=== PATIENT | female | born 1955 | race Caucasian/White ===

== ENCOUNTER 2017-03-27 10:18 | Outpatient (CLI) | payer MEDICAID | END 2017-03-27 10:19 | disposition home or self-care (01) | LOC: SC 10:18 | PROVIDERS: ATTEND Internal Medicine Pulmonary Disease | DX: G47.30 Sleep apnea, unspecified (principal); R53.83 Other fatigue; R06.83 Snoring | CPT/HCPCS: 99203; 99212 ==

== ENCOUNTER 2017-05-24 13:47 | Outpatient (CLI) | payer MEDICAID | END 2017-05-24 13:48 | disposition home or self-care (01) | LOC: SC 13:47 | PROVIDERS: ATTEND Specialist | DX: G47.33 Obstructive sleep apnea (adult) (pediatric) (principal); F32.9 Major depressive disorder, single episode, unspecified | CPT/HCPCS: 99212; 99214 ==

== ENCOUNTER 2017-08-20 15:24 | Outpatient (CLI) | payer MEDICAID | END 2017-08-20 15:25 | disposition home or self-care (01) | LOC: SC 15:24 | PROVIDERS: ATTEND Nurse Practitioner Family | DX: G47.33 Obstructive sleep apnea (adult) (pediatric) (principal) | CPT/HCPCS: 99212; 99214 ==

== ENCOUNTER 2017-09-27 13:45 | Outpatient (CLI) | payer MEDICAID | END 2017-09-27 13:46 | disposition home or self-care (01) | LOC: SC 13:45 | PROVIDERS: ATTEND Nurse Practitioner Family | DX: G47.33 Obstructive sleep apnea (adult) (pediatric) (principal) | CPT/HCPCS: 99212; 99214 ==

== ENCOUNTER 2017-10-30 08:00 | Outpatient (CLI) | payer MEDICAID ==
[2017-10-30 19:31] LABS: HB2 TOTAL 14.2 g/dL; HEMOGLOBIN A1C 0.54 g/dL; HEMOGLOBIN A1C % 5.6 % (4.6-6.2)
== END 2017-10-30 08:01 ==
LOC: LAB.N 08:00
PROVIDERS: ATTEND Family Medicine
DX: R73.9 Hyperglycemia, unspecified (principal); R74.8 Abnormal levels of other serum enzymes
CPT/HCPCS: 36415; 82607; 82947; 83036

== ENCOUNTER 2017-12-27 10:56 | Outpatient (CLI) | payer MEDICAID | END 2017-12-27 10:57 | disposition home or self-care (01) | LOC: SC 10:56 | PROVIDERS: ATTEND Nurse Practitioner Family | DX: G47.33 Obstructive sleep apnea (adult) (pediatric) (principal) | CPT/HCPCS: 99212; 99214 ==

== ENCOUNTER 2018-02-06 10:43 | Outpatient (CLI) | payer MEDICAID | END 2018-02-06 10:44 | disposition home or self-care (01) | LOC: SC 10:43 | PROVIDERS: ATTEND Nurse Practitioner Family | DX: G47.33 Obstructive sleep apnea (adult) (pediatric) (principal) | CPT/HCPCS: 99212; 99214 ==

== ENCOUNTER 2018-05-01 13:47 | Outpatient (CLI) | payer MEDICAID | END 2018-05-01 13:48 | disposition home or self-care (01) | LOC: SC 13:47 | PROVIDERS: ATTEND Nurse Practitioner Family | DX: G47.33 Obstructive sleep apnea (adult) (pediatric) (principal) | CPT/HCPCS: 99212; 99214 ==

== ENCOUNTER 2018-06-06 14:44 | Outpatient (CLI) | payer MEDICAID | END 2018-06-06 14:45 | disposition home or self-care (01) | LOC: SC 14:44 | PROVIDERS: ATTEND Nurse Practitioner Family | DX: G47.33 Obstructive sleep apnea (adult) (pediatric) (principal) | CPT/HCPCS: 99212; 99214 ==

== ENCOUNTER 2018-09-09 13:12 | Outpatient (CLI) | payer MEDICAID | END 2018-09-09 13:13 | disposition home or self-care (01) | LOC: SC 13:12 | PROVIDERS: ATTEND Nurse Practitioner Family | DX: G47.33 Obstructive sleep apnea (adult) (pediatric) (principal) | CPT/HCPCS: 99212; 99215 ==

== ENCOUNTER 2018-12-17 08:00 | Outpatient (CLI) | payer MEDICAID ==
[2018-12-17 18:45] LABS: BUN - BLOOD UREA NITROGEN 10 mg/dL (6-20); CALCIUM 9.2 mg/dL (8.5-10.3); CARBON DIOXIDE - CO2 24 mmol/L (21-32); CHLORIDE 107 mmol/L (101-111); CHOL/HDL RATIO 2.7 (<4.4); CHOLESTEROL 221 mg/dL; CREATININE 0.7 mg/dL (0.4-1.0); GFR - MDRD 85 (>89); GLUCOSE 101 mg/dL (70-100); HDL CHOLESTEROL 82 mg/dL; LDL CHOLESTEROL,CALCULATED 124 mg/dL; LDL/HDL RATIO 1.5 (<4.4); SODIUM 141 mmol/L (135-145); VLDL CHOLESTEROL 15 mg/dL
== END 2018-12-17 08:01 | disposition home or self-care (01) ==
LOC: LAB.N 08:00
PROVIDERS: ATTEND Student in an Organized Health Care Education/Training Program
DX: E03.9 Hypothyroidism, unspecified (principal); M19.049 Primary osteoarthritis, unspecified hand; Z79.1 Long term (current) use of non-steroidal anti-inflammatories (NSAID); E78.5 Hyperlipidemia, unspecified
CPT/HCPCS: 36415; 80048; 80061; 82306; 83721; 84443

== ENCOUNTER 2019-03-13 10:29 | Outpatient (CLI) | payer MEDICAID ==
[2019-03-13 11:13] VITALS: BP 112/70
--- NOTE | 2019-03-13 11:13 | SLEEP CARE CONSULTATION ---
Information from patient questionnaire entered by Wendy Lewis. I have reviewed and concur with the information entered by Wendy Lewis. This document represents the service I personally performed and the decisions made by me, Leanne Carson, RN, MSN, BULB INSPECTOR. History of Present Illness Previous diagnosis: Mild, Obstructive Sleep Apnea-Hypopnea Syndrome AHI: 14.1 Reason for CPAP/BiPAP follow up: six month Equipment type: CPAP Equipment obtained from: [employer] order company Mask style: Full face (Do view) Mask brand: Respironics Backup mask available: Yes Last cushion change: a couple of days ago HPI additional information: Patient has worked on regulating sleep schedule. CPAP Compliance Data - Data Reviewed with Patient Average duration of nightly device use: 7.4 Compliance rate %: 77 (180 days) Current pressure setting (cmH2O): 6-10 Average residual AHI: 4.9 Subjective Patient concerns: reports: air blowing in eyes (intermitttently when turns to side), nasal congestion (mild and sometimes interfers with CPAP use so uses saline nasal spray or sinus rinse ). denies: aerophagia, mask discomfort, mask leak noise, condensation in mask/hose, dry mouth, nose, throat, epistaxis Observed to snore while using device: No Current pressure setting perceived as: comfortable On therapy, patient: reports: sleeping better, awakening more refreshed, being more awake and alert during the day, more rested overall. denies: drowsiness while driving Initial [place] Sleepiness Scale score: 5 Current [place] Sleepiness Scale score: 1 Allergies and Home Medications Known drug allergies: Yes Home medication list reviewed: Yes Allergy and home medication list: Medication Name (generic/name brand) Strength & Dosage Levothyroxine 25mcg tab one daily Meloxicam 15mg tab one daily Montelukast 10mg tab one daily Qvar One puff twice a day Trazadone 150mg tab daily at bedtime EpiPen Use as directed Vitamin C 500mg tab one daily Vitamin D3 5000IU cap one daily Benadryl Allergy 25mg tab two at bedtime as needed Xyzal 10mg tab one daily as needed Famotidine OTC 20mg tab one daily at bedtime Aller-Bill 50mcg One spray twice daily as needed Omeprazole 20mg tab one daily in the morning Multivitamin & Minerals Tab one daily Glucosamine HCI with MSM 1500mg/1500mg tab one daily Taroxetine 30 mg daily in morning Wellbutrin 300mg daily Allergy List Trees Dust Mites Grass pollen [place] pollen Mold Review of Systems Review of systems same as previous: Yes Physical Exam Blood Pressure: 112/70 Cuff size: regular Heart Rate: 95 O2 Saturation: 97 Height: 4 ft 10 in Weight (kg): 142 lb 12.8 oz Body Mass Index: 29.8 BMI Classification: Overweight Impression and Plan 1. Obstructive Sleep Apnea-Hypopnea Syndrome, mild, with good treatment compliance and good apnea control. On CPAP therapy, there is improved sleep quality and feels more rested overall. Recent mask leaks are from a new headgear that she is still adjusting to fit better. Once mask is fitting well with no leaks, she is advised to eric straps with pen. I showed her a CPAP quinton w that can be bought online to reduce mask leaks when sleeping on her side, but is not interested at this time. Since she is planning on losing more weight, I explained how weight loss will reduce apnea risk and CPAP pressure requirements. Currently she is at the maximum pressure of her autoCPAP range which should accomodate some weight loss. Symptoms to report discussed to adjust CPAP pressure lower. She is to continue regulating her wake time as she is waking more rested and able to sleep better at night. Patient's apnea severity and rationale for treatment to reduce apnea, improve sleep quality and reduce cardiovascular and cerebrovascular events was reviewed. I also reviewed the benefit of consistent device use of CPAP for depression/anxiety. * Continue CPAP pressure at 6-10 cmH2O * Continue regulating wake time. * Adjust mask and eric as discussed. * Notify me if snoring with mask or feeling that the pressure is too much or too little * continue to lose weight * Return for follow up in 1 year , or sooner if concerns arise I spent 100% of this 30 minute visit face to face with the patient with greater than 50% of this was spent time counseling the patient and coordination of care.
== END 2019-03-13 10:30 | disposition home or self-care (01) ==
LOC: SC 10:29
PROVIDERS: ATTEND Nurse Practitioner Family
DX: G47.33 Obstructive sleep apnea (adult) (pediatric) (principal)
CPT/HCPCS: 99212; 99214

== ENCOUNTER 2020-03-08 14:53 | Outpatient (CLI) | payer MEDICAID ==
--- NOTE | 2020-03-08 15:22 | SLEEP CARE CONSULTATION ---
Information from patient questionnaire entered by Carley Hernandez. I have reviewed and concur with the information entered by Carley Hernandez. This document represents the service I personally performed and the decisions made by , Jesenia Garcia ARNP. History of Present Illness Service Date and Time: 03/08/2020 1453 Previous diagnosis: Mild, Obstructive Sleep Apnea-Hypopnea Syndrome AHI: 14.1 Reason for follow up: annual (Last seen 02/2019) Equipment type: CPAP Equipment obtained from: Other ([employer]) Mask style: Full face (cloth mask) Backup mask available: Yes (old mask) Last cushion change: couple weeks Year and Where: 2016 [place] Type of Sleep Study: Home sleep study HPI additional information: AURELIO ZAFAR was diagnosed to have mild, AHI 14.1, obstructive sleep apnea- hypopnea syndrome and returned today for CPAP therapy annual follow-up. CPAP Compliance Data - Data Reviewed with Patient Average duration of nightly device use: 7 h 14 min Compliance rate %: 81 Current pressure setting (cmH2O): 6-10 Average residual AHI: 2.5 Average large leak: 1.4 Subjective Patient concerns: reports: mask discomfort (head strap is too old and stretched out), other. denies: aerophagia, air blowing in eyes, mask leak noise, condensation in mask/hose, nasal congestion, dry mouth, nose, throat, epistaxis Observed to snore while using device: No Current pressure setting perceived as: comfortable On therapy, patient: reports: sleeping better, awakening more refreshed, being more awake and alert during the day, more rested overall. denies: drowsiness while driving Initial [place] Sleepiness Scale score: 5 Allergies and Home Medications Drug allergies reviewed: Yes (NKDA) Home medication list reviewed: Yes (no changes) Review of Systems Review of systems same as previous: Yes (no changes) Physical Exam Heart Rate: 97 O2 Saturation: 94 Height: 4 ft 10 in Weight: 145 lb Body Mass Index: 30.3 BMI Classification: Obese Impression and Plan 1. Obstructive Sleep Apnea-Hypopnea Syndrome, mild, with good treatment comp liance and good apnea control. On CPAP therapy, the patient has better sleep quality and is more rested overall. She needs a replacement of her headgear because it is wore out. She was advised to call her DME supplier and see when she will be getting this (she thinks this is soon) and let us know if she needs help getting this replaced. Patient's apnea severity and rationale for treatment to reduce apnea, improve sleep quality and reduce cardiovascular and cerebrovascular events was reviewed. I also reviewed the benefit of consistent device use of CPAP for her depression/anxiety. * Continue auto CPAP pressure at 6-10 cmH2O * Replace headgear as soon as can, check with DME supplier * Notify me if snoring with mask or feeling that the pressure is too much or too little * Attempt to lose weight * Call this office if any problems using CPAP * Return for follow up in 1 year, or sooner if concerns arise Visit Type: In Office Time Spent with Patient (minutes): 22 Provider Statement: I spent 100% of the Face to Face Visit with the patient with greater than 50% spent counseling the patient and coordination of care.
== END 2020-03-08 14:54 | disposition home or self-care (01) ==
LOC: SC 14:53
PROVIDERS: ATTEND Nurse Practitioner Family
DX: G47.33 Obstructive sleep apnea (adult) (pediatric) (principal); E66.9 Obesity, unspecified; Z68.30 Body mass index [BMI] 30.0-30.9, adult
CPT/HCPCS: 99212; 99213

== ENCOUNTER 2021-02-24 14:03 | Outpatient (CLI) | payer MEDICARE, OTHER ==
--- NOTE | 2021-02-24 14:35 | SLEEP CARE CONSULTATION ---
Information from patient questionnaire entered by Wendy Lewis. I have reviewed and concur with the information entered by Wendy Lewis. This document represents the service I personally performed and the decisions made by , Jesenia Garcia ARNP. History of Present Illness Service Date and Time: 02/24/2021 1403 Previous diagnosis: Mild, Obstructive Sleep Apnea-Hypopnea Syndrome AHI: 14.1 (in 2017) Reason for follow up: annual (last seen 02/2020) Equipment type: CPAP Equipment obtained from: Other ([employer]; getting supplies as needed) Mask style: Full face Backup mask available: Yes (old mask) Last cushion change: 2 days ago Prior sleep studies: Yes Year and Where: 2017 - [facility] Type of Sleep Study: Home sleep study HPI additional information: AURELIO ZAFAR was diagnosed to have mild, AHI 14.1, obstructive sleep apnea- hypopnea syndrome and returned today for CPAP therapy annual follow-up. CPAP Compliance Data - Data Reviewed with Patient Average duration of nightly device use: 8 hr 32 min Compliance rate %: 91 (180 days) Current pressure setting (cmH2O): 6-10 Humidity settin Average residual AHI: 2.8 Subjective Patient concerns: denies: aerophagia, mask discomfort, air blowing in eyes, mask leak noise, condensation in mask/hose, nasal congestion, dry mouth, nose, throat, epistaxis, other Observed to snore while using device: No Current pressure setting perceived as: comfortable On therapy, patient: reports: sleeping better, awakening more refreshed, being more awake and alert during the day, more rested overall. denies: drowsiness while driving Initial [place] Sleepiness Scale score: 5 (in 2017) Current [place] Sleepiness Scale score: 1 Allergies and Home Medications Home medication list reviewed: Yes (fluoxetine daily for depression) Review of Systems Review of systems same as previous: Yes (no changes) Physical Exam Heart Rate: 87 O2 Saturation: 97 Height: 4 ft 10 in Weight: 119 lb 12.8 oz Weight change since last visit: 26 lb loss Body Mass Index: 25.0 BMI Classification: Overweight Impression and Plan 1. Obstructive Sleep Apnea-Hypopnea Syndrome, mild, with good treatment compliance and good apnea control. On CPAP therapy, the patient has better sleep quality and is more rested overall. Patient is satisfied with current treatment with significant improvement of her sleep apnea. Patient has lost weight. [place] patients BMI is 25.0. Obesity increases the risk of apnea, CPAP pressure requirements and overall health risks especially cardiovascular and diabetes. Thus patient is advised to continue to lose weight. The patient's CPAP pressure range should accommodate some weight loss. Symptoms to report for additional pressure adjustment discussed. Patient's apnea severity and rationale for treatment to reduce apnea, improve sleep quality and reduce cardiovascular and cerebrovascular events was reviewed. I also reviewed the benefit of consistent device use of CPAP for depression/anxiety. * Continue autoCPAP pressure at 6-10 cmH2O * Notify me if snoring with mask or feeling that the pressure is too much or too little * Continue to try to lose weight * Call this office if any problems using CPAP * Return for follow up in 1 year, or sooner if concerns arise Counseling Topics: Spare mask, Weight loss health impact Visit Type: In Office Time Spent with Patient (minutes): 14 Provider Statement: I spent 100% of the Face to Face Visit with the patient with greater than 50% spent counseling the patient and coordination of care.
== END 2021-02-24 14:04 | disposition home or self-care (01) ==
LOC: SC 14:03
PROVIDERS: ATTEND Nurse Practitioner Family
DX: G47.33 Obstructive sleep apnea (adult) (pediatric) (principal)
CPT/HCPCS: 99212; G0463

== ENCOUNTER 2021-09-20 11:29 | Outpatient (CLI) | payer MEDICARE ==
[2021-09-20 12:05] VITALS: BP 116/87
--- NOTE | 2021-09-20 12:05 | SLEEP CARE CONSULTATION ---
Information from patient questionnaire entered by Austin Ribera MA. I have reviewed and concur with the information entered by Austin Ribera MA. This document represents the service I personally performed and the decisions made by , Jesenia Garcia ARNP. History of Present Illness Service Date and Time: 09/20/2021 1129 Previous diagnosis: Mild, Obstructive Sleep Apnea-Hypopnea Syndrome AHI: 14.1 (in 2017) Reason for follow up: six month (6 MONTH F/U, DIFF. MASK, RESMED,) Equipment type: CPAP Equipment obtained from: Other ([employer]; getting supplies as needed) Mask style: Full face (hybrid full face) Backup mask available: Yes (other mask) Last cushion change: 2 weeks Prior sleep studies: Yes Year and Where: 2016 - [facility] Type of Sleep Study: Home sleep study HPI additional information: AURELIO ZAFAR was diagnosed to have mild, AHI 14.1, obstructive sleep apnea- hypopnea syndrome and returned today for CPAP therapy 6 month follow-up. Sleep Study - Results Type of Sleep Study: Home sleep study Prior sleep studies: Yes Year and Where: 2016 - [facility] CPAP Compliance Data - Data Reviewed with Patient Average duration of nightly device use: 9 HOURS 28 MINUTES Compliance rate %: 89 Current pressure setting (cmH2O): 6-10 Average residual AHI: 3.2 Central apnea: .0 Obstructive apnea: 2.1 Average large leak: 18.3 Subjective Patient concerns: reports: mask discomfort, mask leak noise. denies: aerophagia, air blowing in eyes, condensation in mask/hose, nasal congestion, dry mouth, nose, throat, epistaxis Observed to snore while using device: No Current pressure setting perceived as: comfortable On therapy, patient: reports: sleeping better, awakening more refreshed, being more awake and alert during the day, more rested overall. denies: drowsiness while driving Initial [place] Sleepiness Scale score: 5 (in 2017) Current [place] Sleepiness Scale score: 0 (09/13) Allergies and Home Medications Home medication list reviewed: Yes (no changes) Allergy and home medication list: Allergies No Known Drug Allergies Allergy (Verified 05/21/13 01:18) Review of Systems Review of systems same as previous: Yes (no changes) Physical Exam Vital signs obtained and entered by: ALLI FIGUEROA Blood Pressure: 116/87 (RIGHT, PULSE 86, RESP 16, ) Cuff size: wrist Heart Rate: 88 O2 Saturation: 98 (PAPER) Height: 4 ft 10 in Weight: 114 lb Weight change since last visit: 5 lb loss - intentional Body Mass Index: 23.8 BMI Classification: Healthy weight Impression and Plan 1. Obstructive Sleep Apnea-Hypopnea Syndrome, mild, with good treatment compliance and good apnea control. On CPAP therapy, the patient has better sleep quality and is more rested overall. Patient is doing well with her CPAP. She has lost weight and her face has changed shape. She would like to try a different type of mask because the full face hybrid mask is pushing up on her nose and making it sore. Patient states her DME does not do any mask fittings because they are not local. Patient was fitted to a nasal Dreamwear Wisp mask by the Software Sales Consultant per my request in the office. She was happy with the fit to a small cushion on the Wisp mask setup. She states her mouth will come open when she sleeps and I suggested trying a chinstrap to keep mouth closed if needed with the nasal mask. I will write a prescription for this mask change to be sent to her DME company so she may order them when needed. She voiced understanding and agreement with plan. Patient's apnea severity and rationale for treatment to reduce apnea, improve sleep quality and reduce cardiovascular and cerebrovascular events was reviewed. I also reviewed the benefit of consistent device use of CPAP for depression and anxiety. * Continue auto CPAP pressure at 6-10 cmH2O * Patient fitted to and given a nasal Dreamwear Wisp mask * Prescription for change in mask for DME supplier * Chin strap if needed for oral venting * Notify me if snoring with mask or feeling that the pressure is too much or too little * Maintain a healthy weight * Call this office if any problems using CPAP * Return for follow up in 1 year, or sooner if concerns arise Mask provided: Yes Counseling Topics: Spare mask, Weight control Visit Type: In Office Time Spent with Patient (minutes): 24 Provider Statement: I spent 100% of the Face to Face Visit with the patient with greater than 50% spent counseling the patient and coordination of care.
== END 2021-09-20 11:30 | disposition home or self-care (01) ==
LOC: SC 11:29
PROVIDERS: ATTEND Nurse Practitioner Family
DX: G47.33 Obstructive sleep apnea (adult) (pediatric) (principal)
CPT/HCPCS: 99213; G0463; 99212

== ENCOUNTER 2021-11-04 20:19 | Outpatient (CLI) | payer MEDICARE | END 2021-11-04 20:20 | disposition critical access hospital (66) | LOC: EMS 20:19 | DX: R40.4 Transient alteration of awareness (principal) | CPT/HCPCS: A0425; A0427 ==

== ENCOUNTER 2021-11-04 20:36 | Emergency (ER) | payer MEDICARE ==
--- NOTE | 2021-11-04 20:44 | ED Physician Documentation ---
History of Present Illness - Stated complaint Stated Complaint: AMS, INTUBATED - Chief complaint Chief Complaint: Resp - History obtained from History obtained from: EMS - History of Present Illness Timing: Prior to arrival - Additonal information Additional information: HPI from EMS, as patient arrives intubated. Patient requires my immediate attention on arrival due to reported STEMI on EMS EKGs EMS says patient went to take a nap this afternoon, went to check on her tonight and found patient was unconscious and unresponsive, he called 911. EMS arrived to find patient with GCS 3 , rhythm strips and EKGs show some periods of bradycardia to 30s as well a a period of ventricular bigeminy, but mostly sinus rhythm with ST elevations in V3-V5 leads ranging from 2-4. Patient was given succinycholine and etomidate in field for RSI. FSBS 227 by EMS Review of Systems Unable to obtain: Intubated PD PAST MEDICAL HISTORY - Past Medical History Cardiovascular: High cholesterol Respiratory: Asthma Endocrine/Autoimmune: HyPOthyroidism GI: GERD : None HEENT: None Psych: Depression Musculoskeletal: Osteoarthritis Derm: None - Past Surgical History Past Surgical History: Yes HEENT: Tonsil/Adenoidectomy - Present Medications Home Medications: Ambulatory Orders Medication Instructions Recorded Confirmed buPROPion [Wellbutrin Sr] 300 mg DAILY 05/21/13 11/04/21 DULoxetine [Cymbalta] 60 mg PO DAILY 11/04/21 11/04/21 Levocetirizine Dihydrochloride 5 mg PO PRN PRN 11/04/21 11/04/21 [24Hr Allergy Relief] Meloxicam [Mobic] 1 tablet PO DAILY PRN 11/04/21 11/04/21 Montelukast Sodium 10 mg PO PRN PRN 11/04/21 11/04/21 Omeprazole 40 mg PO DAILY 11/04/21 11/04/21 - Allergies Allergies/Adverse Reactions: Allergies Allergy/AdvReac Type Severity Reaction Status Date / Time No Known Drug Allergies Allergy Verified 11/04/21 21:10 - Social History Does the pt smoke?: No Smoking Status: Former smoker Does the pt drink ETOH?: No Does the pt have substance abuse?: No - Immunizations Immunizations are current?: No - POLST Patient has POLST: No PD ED PE NORMAL - Vitals Vital signs reviewed: Yes - General General: Well developed/nourished - HEENT HEENT: Atraumatic, Other (midsize, equal pupils, sluggishly reactive to light) - Neck Neck: No JVD - Cardiac Cardiac: RRR, No murmur - Respiratory Respiratory: No respiratory distress, Clear bilaterally, Other (equal breath sounds bilaterally with good air flow bilaterally) - Abdomen Abdomen: Soft, Non tender - Derm Derm: Normal color, Warm and dry - Extremities Extremities: No edema - Neuro Eye Opening: None Motor: None Verbal: None GCS Score: 3 PD ED PE EXPANDED - General General: Other (intubated (orotracheal), unresponsive) Results - Vitals Vitals: Oxygen O2 Source Mechanical ventilator - EKG (time done) No standard instances Rate: Rate (enter#) (76) Rhythm: NSR [place]: Normal Intervals: Normal [place] QRS: Normal Ischemia: ST elevation c/w ischemia (V3-V5, 2-3mm elevations) - Labs Labs: Laboratory Tests 11/04/21 11/04/21 11/04/21 20:45 20:45 20:45 WBC 20.4 H RBC 4.17 L Hgb 13.1 Hct 39.3 MCV 94.2 MCH 31.4 H MCHC 33.3 RDW 12.9 Plt Count 319 MPV 9.5 Neut # (Auto) Not Reportable Lymph # (Auto) Not Reportable [place] # (Auto) Not Reportable Eos # (Auto) Not Reportable Baso # (Auto) Not Reportable Absolute Nucleated RBC Not Reportable Total Counted 100 Band Neuts % (Manual) 5 Abnorm Lymph % (Manual) 0 Nucleated RBC % Not Reportable Neutrophils # (Manual) 18.6 H Lymphocytes # (Manual) 0.8 L Monocytes # (Manual) 0.6 Eosinophils # (Manual) 0.0 Basophils # (Manual) 0.4 H Differential Comment MANUAL DIFFERENTIAL WBC Morphology NORMAL APPEARANCE Platelet Estimate NORMAL (130-450,000) Platelet Morphology NORMAL APPEARANCE RBC Morph Micro Appear NORMAL APPEARANCE PT 12.6 INR 1.1 APTT 29.0 Sodium 139 Potassium 3.4 L Chloride 106 Carbon Dioxide 21 Anion Gap 12.0 BUN 12 Creatinine 0.7 Estimated GFR (MDRD) 84 L Glucose 230 H Calcium 8.5 Total Bilirubin 0.5 AST 30 ALT 18 Alkaline Phosphatase 52 Troponin I High Sens Total Protein 7.4 Albumin 4.5 Globulin 2.9 Albumin/Globulin Ratio 1.6 Lipase 24 Nasal Adenovirus (PCR) Nasal B. parapertussis DNA (PCR) Nasal Coronavir 229E PCR Nasal Coronavir HKU1 PCR Nasal Coronavir NL63 PCR Nasal Coronavir OC43 PCR Nasal Enterovir/Rhinovir PCR Nasal Influenza B PCR Nasal Influenza A PCR Nasal Parainfluen 1 PCR Nasal Parainfluen 2 PCR Nasal Parainfluen 3 PCR Nasal Parainfluen 4 PCR Nasal RSV (PCR) Nasal B.pertussis DNA PCR Nasal C.pneumoniae (PCR) Ben Human Metapneumo PCR Nasal M.pneumoniae (PCR) Nasal SARS-CoV-2 (PCR) 11/04/21 11/04/21 20:45 22:17 WBC RBC Hgb Hct MCV MCH MCHC RDW Plt Count MPV Neut # (Auto) Lymph # (Auto) [place] # (Auto) Eos # (Auto) Baso # (Auto) Absolute Nucleated RBC Total Counted Band Neuts % (Manual) Abnorm Lymph % (Manual) Nucleated RBC % Neutrophils # (Manual) Lymphocytes # (Manual) Monocytes # (Manual) Eosinophils # (Manual) Basophils # (Manual) Differential Comment WBC Morphology Platelet Estimate Platelet Morphology RBC Morph Micro Appear PT INR APTT Sodium Potassium Chloride Carbon Dioxide Anion Gap BUN Creatinine Estimated GFR (MDRD) Glucose Calcium Total Bilirubin AST ALT Alkaline Phosphatase Troponin I High Sens 275.2 H* Total Protein Albumin Globulin Albumin/Globulin Ratio Lipase Nasal Adenovirus (PCR) NOT DETECTED Nasal B. parapertussis DNA (PCR) NOT DETECTED Nasal Coronavir 229E PCR NOT DETECTED Nasal Coronavir HKU1 PCR NOT DETECTED Nasal Coronavir NL63 PCR NOT DETECTED Nasal Coronavir OC43 PCR NOT DETECTED Nasal Enterovir/Rhinovir PCR NOT DETECTED Nasal Influenza B PCR NOT DETECTED Nasal Influenza A PCR NOT DETECTED Nasal Parainfluen 1 PCR NOT DETECTED Nasal Parainfluen 2 PCR NOT DETECTED Nasal Parainfluen 3 PCR NOT DETECTED Nasal Parainfluen 4 PCR NOT DETECTED Nasal RSV (PCR) NOT DETECTED Nasal B.pertussis DNA PCR NOT DETECTED Nasal C.pneumoniae (PCR) NOT DETECTED Ben Human Metapneumo PCR NOT DETECTED Nasal M.pneumoniae (PCR) NOT DETECTED Nasal SARS-CoV-2 (PCR) NOT DETECTED PD MEDICAL DECISION MAKING - ED course Complexity details: considered differential ED course: BIBA , intubated for GCS 3 in field, 2-4mm ST elevations in V leads. D/W Dr. Orozco, EDMD at [facility], accepts transfer. Recommends [place] ASA, heparin bolus but can hold on drip, and send patient to [facility] ED Departure - Departure Disposition: 02 Transfer Acute Care Hosp Clinical Impression: AMI (acute myocardial infarction) Qualifiers: Myocardial infarction type: ST elevation myocardial infarction Involved coronary artery: unspecified coronary artery Qualified Code(s): I21.3 - ST elevation (STEMI) myocardial infarction of unspecified site Condition: Critical Discharge Date/Time: 11/04/21 22:19
--- OUTSIDE RECORDS SUMMARY | 2021-11-04 20:44 | EXTERNAL MEDICAL SUMMARY RPT | Continuity of Care Document ---
:1955 Author Organization [facility] Address [address] [place] [address] Phone Care Team Providers Name Role Phone Maryam Unavailable Unavailable Allergies No information. Encounters No information. Medications date description facility [id number] Omeprazole 20 MG Enteric Coated Tablet [facility] Problems date description facility [id number] Asymptomatic menopausal state [facility] [id number] Chest pain, unspecified [facility] Procedures date description facility [id number] [facility] [id number] [facility] [id number] [facility] [id number] [facility] [id number] [facility] [id number] [facility] Results No information. Vital Signs date measurement value source 20210901 weight_standard 51.26 lb 20210901 weight_metric 23.25 kg 20210901 height_standard 58 in 20210901 height_metric 147.32 cm 20210901 heart_rate 97 /min 20210901 BP_systolic 143 mm[Hg] 20210901 BP_diastolic 95 mm[Hg] 20210901 BMI 23.6 kg/m2 20210915 weight_standard 51.8 lb 20210915 weight_metric 23.49 kg 20210915 height_standard 58 in 20210915 height_metric 147.32 cm 20210915 heart_rate 86 /min 20210915 BP_systolic 114 mm[Hg] 20210915 BP_diastolic 72 mm[Hg] 20210915 BMI 23.8 kg/m2 20210929 weight_standard 50.8 lb 20210929 weight_metric 23.04 kg 20210929 height_standard 58 in 20210929 height_metric 147.32 cm 20210929 heart_rate 78 /min 20210929 BP_systolic 135 mm[Hg] 20210929 BP_diastolic 80 mm[Hg] 20210929 BMI 23.3 kg/m2 20211027 weight_standard 50.35 lb 20211027 weight_metric 22.84 kg 20211027 height_standard 58 in 20211027 height_metric 147.32 cm 20211027 heart_rate 79 /min 20211027 BP_systolic 138 mm[Hg] 20211027 BP_diastolic 80 mm[Hg] 20211027 BMI 23.1 kg/m2
[2021-11-04] MEDS ORDERED: ASPIRIN CHEW 81 MG TABLET PO STA (20:48)
[2021-11-04] MEDS ORDERED: ASPIRIN 300 MG SUPP PR STA (20:58)
[2021-11-04 21:08] VITALS: BP 170/104
[2021-11-04 21:17] LABS: BASOPHILS % (AUTO) 0.4 %; EOSINOPHILS % (AUTO) 0.1 %; HCT - HEMATOCRIT 39.3 % (37.0-47.0); HGB - HEMOGLOBIN 13.1 g/dL (12.0-16.0); LYMPHOCYTES % (AUTO) 5.7 %; MEAN CORPUSCULAR HEMOGLOBIN 31.4 pg (27.0-31.0); MEAN CORPUSCULAR HGB CONC 33.3 g/dL (32.0-36.0); MEAN CORPUSCULAR VOLUME 94.2 fL (81.0-99.0); MEAN PLATELET VOLUME 9.5 fL (7.9-10.8); NEUTROPHILS % (AUTO) 90.2 %; PLT - PLATELET COUNT 319 10^3/uL (130-450); RED BLOOD COUNT 4.17 10^6/uL (4.20-5.40); RED CELL DISTRIBUTION WIDTH 12.9 % (12.0-15.0); WHITE BLOOD COUNT 20.4 x10^3/uL (4.8-10.8)
[2021-11-04 21:23] LABS: ABNORMAL LYMPHS % (MANUAL) 0 %
[2021-11-04 21:27] LABS: INR 1.1 (0.8-1.2); PT - PROTHROMBIN TIME 12.6 secs (9.9-12.6)
[2021-11-04 21:31] LABS: ALBUMIN 4.5 g/dL (3.2-5.5); ALBUMIN/GLOBULIN RATIO 1.6 (1.0-2.2); BILIRUBIN,TOTAL 0.5 mg/dL (0.2-1.0); CALCIUM 8.5 mg/dL (8.5-10.3); CREATININE 0.7 mg/dL (0.4-1.0); POTASSIUM 3.4 mmol/L (3.5-5.0); TOTAL PROTEIN 7.4 g/dL (6.7-8.2)
[2021-11-04 21:59] LABS: BAND NEUTROPHILS % (MANUAL) 5 %; BASOPHILS # (MANUAL) 0.4 10^3/uL (0-0.1); BASOPHILS % (MANUAL) 2 %; DIFFERENTIAL COMMENT MANUAL DIFFERENTIAL; LYMPHOCYTES # (MANUAL) 0.8 10^3/uL (1.5-3.5); LYMPHOCYTES % (MANUAL) 4 %; MONOCYTES # (MANUAL) 0.6 10^3/uL (0.0-1.0); NEUTROPHILS # (MANUAL) 18.6 10^3/uL (1.5-6.6); PLATELET ESTIMATE, MANUAL NORMAL (130-450,000) (NORMAL); PLATELET MORPHOLOGY NORMAL APPEARANCE (NORMAL); RBC MORPHOLOGY (MULTIPLE) NORMAL APPEARANCE (NORMAL); WBC MORPHOLOGY (MULTIPLE) NORMAL APPEARANCE (NORMAL)
[2021-11-04 23:12] LABS: B. PARAPERTUSSIS- RESP PCR PAN NOT DETECTED; B. PERTUSSIS- RESP PCR PANEL NOT DETECTED; C. PNEUMONIAE- RESP PCR PANEL NOT DETECTED; CORONAVIRUS 229E-RESP PCR NOT DETECTED; CORONAVIRUS HKU1-RESP PCR NOT DETECTED; CORONAVIRUS NL63-RESP PCR NOT DETECTED; CORONAVIRUS OC43-RESP PCR NOT DETECTED; HUMAN METAPNEUMOVIRUS NOT DETECTED; INFLUENZA A- RESP PCR PANEL NOT DETECTED; INFLUENZA B - RESP PCR PANEL NOT DETECTED; M. PNEUMONIAE- RESP PCR PANEL NOT DETECTED; PARAINFLUENZA VIRUS 1 NOT DETECTED; PARAINFLUENZA VIRUS 2 NOT DETECTED; PARAINFLUENZA VIRUS 3 NOT DETECTED; PARAINFLUENZA VIRUS 4 NOT DETECTED; RHINOVIRUS/ENTEROVIRUS NOT DETECTED; RSV- RESP PCR PANEL NOT DETECTED; SARS-CoV-2 -RESP PCR PANEL NOT DETECTED
== END 2021-11-04 22:19 | disposition short-term general hospital (02) ==
LOC: EDUNIT# → ED 20:36
DX: I21.3 ST elevation (STEMI) myocardial infarction of unspecified site (principal); Z87.891 Personal history of nicotine dependence
CPT/HCPCS: 36415; 80053; 83690; 84484; 85025; 85610; 85730; 87633; 93005; 96374; 99285; 99291; A9270; 94770